=== PATIENT | male | born 1965 | race Caucasian/White ===

== ENCOUNTER 2018-10-31 14:15 | Inpatient (IN) | payer OTHER ==
[2018-10-31 15:14] LABS: ADD MAN DIFF? NO
[2018-10-31 15:19] LABS: BASOPHIL # 0.1 10^3/ul (0.0-0.1); BASOPHILS % 0.6 % (0.0-2.0); EOSINOPHILS # 0.5 10^3/ul (0.0-0.5); LYMPHOCYTES # 1.5 10^3/ul (0.8-2.9); LYMPHOCYTES % 15.3 % (15.0-51.0); MEAN CORPUSCULAR HEMOGLOBIN 28.9 pg (29.0-33.0); MEAN CORPUSCULAR HGB CONC 32.6 g/dl (32.0-37.0); MEAN CORPUSCULAR VOLUME 88.6 fl (82.0-101.0); MEAN PLATELET VOLUME 11.6 fl (7.4-10.4); MONOCYTE # 0.8 10^3/ul (0.3-0.9); MONOCYTES % 8.2 % (0.0-11.0); NEUTROPHILS % 70.5 % (39.0-77.0); PLATELET COUNT 163 10^3/UL (140-415); RED BLOOD COUNT 5.19 10^6/ul (4.70-6.10); RED CELL DISTRIBUTION WIDTH 14.6 % (11.5-14.5)
[2018-10-31 15:19] LABS: WHITE BLOOD COUNT 9.9 10^3/ul (4.8-10.8)
[2018-10-31 15:38] LABS: ALANINE AMINOTRANSFERASE 36 IU/L (13-69); ALBUMIN 3.9 g/dl (3.3-4.9); ALBUMIN/GLOBULIN RATIO 1.39; ALKALINE PHOSPHATASE 76 IU/L (42-121); ANION GAP 8 (5-13); ASPARTATE AMINO TRANSFERASE 37 IU/L (15-46); BILIRUBIN,INDIRECT 1.4 mg/dl (0-1.1); BILIRUBIN,TOTAL 1.4 mg/dl (0.2-1.3); BLOOD UREA NITROGEN 16 mg/dl (7-20); CALCIUM 8.8 mg/dl (8.4-10.2); CARBON DIOXIDE 26 mmol/L (21-31); CHLORIDE 103 mmol/L (97-110); Estimated GFR > 60 mL/min (>60); GLUCOSE 125 mg/dl (70-220); MAGNESIUM 1.8 mg/dl (1.7-2.5); POTASSIUM 4.5 mmol/L (3.5-5.1); SODIUM 137 mmol/L (135-144); TOTAL PROTEIN 6.7 g/dl (6.1-8.1)
[2018-10-31 15:42] LABS: INR 0.94; PARTIAL THROMBOPLASTIN TIME 28.7 Sec (23.0-35.0); PROTIME 12.7 Sec (11.9-14.9)
[2018-10-31 15:52] LABS: B-TYPE NATRIURETIC PEPTIDE 4090 PG/ML (0-125); TROPONIN-I 0.028 ng/ml (0.000-0.120)
[2018-10-31] MEDS ORDERED: ONDANSETRON 4 MG INJ IV (20:00)
[2018-10-31] MEDS ORDERED: NACL 0.9% 3 ML SYG IV (20:00)
[2018-10-31] MEDS ORDERED: ACETAMINOPHEN 325 MG TAB PO (20:00)
[2018-10-31] MEDS: FUROSEMIDE 40 MG INJ IV (20:15)
[2018-10-31] MEDS: BENAZEPRIL 20 MG TAB PO (21:39)
[2018-10-31] MEDS: SENNA TAB PO (21:39)
[2018-10-31] MEDS: IOHEXOL 300MG/ML 150 ML BTL (23:22)
[2018-10-31] MEDS: SOD CHLORIDE 0.9% 100 ML (23:22)
[2018-11-01 05:20] LABS: ADD MAN DIFF? NO
[2018-11-01] MEDS: FUROSEMIDE 40 MG INJ IV ×2 (05:22→17:35)
[2018-11-01] MEDS: PANTOPRAZOLE (EC) 40 MG TAB PO (05:22)
[2018-11-01 05:27] LABS: BASOPHIL # 0.1 10^3/ul (0.0-0.1); BASOPHILS % 0.7 % (0.0-2.0); EOSINOPHILS # 0.6 10^3/ul (0.0-0.5); EOSINOPHILS % 6.2 % (0.0-7.0); HEMATOCRIT 45.3 % (42.0-52.0); HEMOGLOBIN 14.9 g/dl (14.0-18.0); LYMPHOCYTES # 1.7 10^3/ul (0.8-2.9); MEAN CORPUSCULAR HEMOGLOBIN 29.1 pg (29.0-33.0); MEAN CORPUSCULAR HGB CONC 32.9 g/dl (32.0-37.0); MEAN CORPUSCULAR VOLUME 88.5 fl (82.0-101.0); MEAN PLATELET VOLUME 11.5 fl (7.4-10.4); NEUTROPHIL # 6.5 10^3/ul (1.6-7.5); NEUTROPHILS % 65.7 % (39.0-77.0); PLATELET COUNT 177 10^3/UL (140-415); RED BLOOD COUNT 5.12 10^6/ul (4.70-6.10); RED CELL DISTRIBUTION WIDTH 14.6 % (11.5-14.5)
[2018-11-01 05:27] LABS: WHITE BLOOD COUNT 9.9 10^3/ul (4.8-10.8)
[2018-11-01 05:41] LABS: HEMOGLOBIN A1C 5.3 % (0-5.9)
[2018-11-01 05:48] LABS: ALANINE AMINOTRANSFERASE 35 IU/L (13-69); ALBUMIN 3.8 g/dl (3.3-4.9); ALBUMIN/GLOBULIN RATIO 1.26; ALKALINE PHOSPHATASE 70 IU/L (42-121); ANION GAP 11 (5-13); ASPARTATE AMINO TRANSFERASE 29 IU/L (15-46); BILIRUBIN,INDIRECT 1.6 mg/dl (0-1.1); BILIRUBIN,TOTAL 1.6 mg/dl (0.2-1.3); BLOOD UREA NITROGEN 18 mg/dl (7-20); CALCIUM 8.9 mg/dl (8.4-10.2); CARBON DIOXIDE 31 mmol/L (21-31); CHLORIDE 99 mmol/L (97-110); CHOL/HDL RATIO 6.6 RATIO; CHOLESTEROL 180 mg/dl (100-200); CREATININE 1.15 mg/dl (0.61-1.24); Estimated GFR > 60 mL/min (>60); GLUCOSE 105 mg/dl (70-220); HDL CHOLESTEROL 27 mg/dl (28-71); LDL CHOLESTEROL,CALCULATED 134 mg/dl; MAGNESIUM 1.9 mg/dl (1.7-2.5); PHOSPHORUS 5.5 mg/dl (2.5-4.9); POTASSIUM 4.1 mmol/L (3.5-5.1); SODIUM 141 mmol/L (135-144); TOTAL PROTEIN 6.8 g/dl (6.1-8.1); TRIGLYCERIDES 97 mg/dl (0-149)
[2018-11-01 05:57] LABS: TROPONIN-I 0.046 ng/ml (0.000-0.120)
[2018-11-01] MEDS: SENNA TAB PO ×2 (08:19→20:56)
[2018-11-01] MEDS: BENAZEPRIL 20 MG TAB PO (08:19)
[2018-11-02] MEDS: FUROSEMIDE 40 MG INJ IV (05:33)
[2018-11-02] MEDS: PANTOPRAZOLE (EC) 40 MG TAB PO (05:33)
[2018-11-02 06:33] LABS: ANION GAP 8 (5-13); BLOOD UREA NITROGEN 29 mg/dl (7-20); CALCIUM 9.1 mg/dl (8.4-10.2); CARBON DIOXIDE 28 mmol/L (21-31); CHLORIDE 102 mmol/L (97-110); Estimated GFR 53 mL/min (>60); GLUCOSE 125 mg/dl (70-220); SODIUM 138 mmol/L (135-144)
[2018-11-02] MEDS: BENAZEPRIL 20 MG TAB PO (08:05)
[2018-11-02] MEDS: SENNA TAB PO ×2 (08:06→20:35)
[2018-11-02] MEDS: DIGOXIN 500 MCG INJ IV (15:12)
[2018-11-02] MEDS ORDERED: LISINOPRIL 5 MG TAB PO (17:00)
[2018-11-02] MEDS: ASPIRIN (EC) 81 MG TAB PO (17:04)
[2018-11-02] MEDS: ATORVASTATIN 10 MG TAB PO (20:35)
[2018-11-03] MEDS: PANTOPRAZOLE (EC) 40 MG TAB PO (05:40)
[2018-11-03 05:53] LABS: ALANINE AMINOTRANSFERASE 26 IU/L (13-69); ALBUMIN 3.9 g/dl (3.3-4.9); ALBUMIN/GLOBULIN RATIO 1.14; ALKALINE PHOSPHATASE 100 IU/L (42-121); ANION GAP 11 (5-13); ASPARTATE AMINO TRANSFERASE 25 IU/L (15-46); BILIRUBIN,INDIRECT 0.6 mg/dl (0-1.1); BILIRUBIN,TOTAL 0.6 mg/dl (0.2-1.3); BLOOD UREA NITROGEN 37 mg/dl (7-20); CALCIUM 9.1 mg/dl (8.4-10.2); CARBON DIOXIDE 29 mmol/L (21-31); CHLORIDE 102 mmol/L (97-110); Estimated GFR 53 mL/min (>60); GLUCOSE 140 mg/dl (70-220); MAGNESIUM 2.2 mg/dl (1.7-2.5); POTASSIUM 4.1 mmol/L (3.5-5.1); SODIUM 142 mmol/L (135-144); TOTAL PROTEIN 7.3 g/dl (6.1-8.1)
[2018-11-03 05:59] LABS: B-TYPE NATRIURETIC PEPTIDE 715 PG/ML (0-125)
[2018-11-03] MEDS: ASPIRIN (EC) 81 MG TAB PO (09:33)
[2018-11-03] MEDS: SENNA TAB PO (09:33)
[2018-11-03] MEDS: BENAZEPRIL 20 MG TAB PO (09:33)
[2018-11-03] MEDS: METOPROLOL 25 MG TAB PO (12:34)
[2018-11-03] MEDS: DIGOXIN 0.125 MG TAB PO (12:35)
== END 2018-11-03 19:10 | disposition home or self-care (01) | DRG 291 ==
LOC: E/R 14:15 → 6WM 19:53
DX: I11.0 Hypertensive heart disease with heart failure (principal); J96.90 Respiratory failure, unspecified, unspecified whether with hypoxia or hypercapnia; N17.9 Acute kidney failure, unspecified; I50.23 Acute on chronic systolic (congestive) heart failure; M10.9 Gout, unspecified; K74.60 Unspecified cirrhosis of liver; R14.0 Abdominal distension (gaseous); E78.5 Hyperlipidemia, unspecified; R00.0 Tachycardia, unspecified; I42.0 Dilated cardiomyopathy
CPT/HCPCS: 36415; 71045; 74177; 76700; 80048; 80053; 80061; 83036; 83735; 83880; 84100; 84443; 84484; 85025; 85610; 85730; 93005; 93306; 99285-25

== ENCOUNTER 2018-12-15 15:22 | Inpatient (IN) | payer OTHER ==
[2018-12-15] MEDS: CEFEPIME 2GM/50 ML (PMX) 50 ML IVPB (16:09)
[2018-12-15] MEDS: SODIUM CHLORIDE 0.9% 1L BAG IV* (16:09)
[2018-12-15] MEDS: ACETAMINOPHEN 325 MG TAB PO (16:11)
[2018-12-15 16:13] LABS: ABNORMAL IP MESSAGE 1; HEMATOCRIT 45.4 % (42.0-52.0); HEMOGLOBIN 14.7 g/dl (14.0-18.0); MEAN CORPUSCULAR HEMOGLOBIN 27.9 pg (29.0-33.0); MEAN CORPUSCULAR HGB CONC 32.4 g/dl (32.0-37.0); MEAN CORPUSCULAR VOLUME 86.3 fl (82.0-101.0); MEAN PLATELET VOLUME 10.8 fl (7.4-10.4); PLATELET COUNT 177 10^3/UL (140-415); POSITIVE DIFF @See below; RED BLOOD COUNT 5.26 10^6/ul (4.70-6.10); RED CELL DISTRIBUTION WIDTH 13.9 % (11.5-14.5)
[2018-12-15 16:13] LABS: WHITE BLOOD COUNT 10.4 10^3/ul (4.8-10.8)
[2018-12-15 16:16] LABS: ADD MAN DIFF? YES
[2018-12-15 16:30] LABS: ALANINE AMINOTRANSFERASE 17 IU/L (13-69); ALBUMIN 4.4 g/dl (3.3-4.9); ALBUMIN/GLOBULIN RATIO 1.22; ALKALINE PHOSPHATASE 65 IU/L (42-121); ANION GAP 11 (5-13); ASPARTATE AMINO TRANSFERASE 24 IU/L (15-46); BILIRUBIN,INDIRECT 1.2 mg/dl (0-1.1); BILIRUBIN,TOTAL 1.2 mg/dl (0.2-1.3); BLOOD UREA NITROGEN 32 mg/dl (7-20); CALCIUM 9.4 mg/dl (8.4-10.2); CARBON DIOXIDE 27 mmol/L (21-31); CHLORIDE 96 mmol/L (97-110); CREATININE 1.35 mg/dl (0.61-1.24); Estimated GFR 55 mL/min (>60); GLUCOSE 93 mg/dl (70-220); POTASSIUM 4.9 mmol/L (3.5-5.1); SODIUM 134 mmol/L (135-144)
[2018-12-15] MEDS: VANCOMYCIN 1 GM (PMX) 250 ML IVPB (16:33)
[2018-12-15 16:35] LABS: EOSINOPHILS % (M) 1 % (0-7); LYMPHOCYTES #M 1.7 10^3/ul (0.8-2.9); LYMPHOCYTES % (M) 17 % (15-51); MONOCYTE #M 1.6 10^3/ul (0.3-0.9); MONOCYTES % (M) 16 % (0-11); PLATELET ESTIMATE NORMAL; REACTIVE LYMPHOCYTES #M 1.5 10^3/ul (0.0-0.0); REACTIVE LYMPHOCYTES% (M) 15 % (0-0); SEGMENTED NEUTROPHILS (M) % 51 % (39-77); SMUDGE%M 1 % (0-0)
[2018-12-15] MEDS: METHYLPREDNISOLONE 125 MG INJ IV (16:45)
[2018-12-15] MEDS: ALBUTEROL 0.083% (NEB) 2.5 MG/3 ML AMP NEB (17:04)
[2018-12-15 19:30] LABS: ERYTHROCYTE SEDIMENTATION RATE 27 mm/Hr (0-20)
[2018-12-15] MEDS ORDERED: ACETAMINOPHEN 325 MG TAB PO ×2 (22:00→22:30)
[2018-12-15] MEDS ORDERED: ONDANSETRON 4 MG INJ IV ×2 (22:00→22:30)
[2018-12-15] MEDS ORDERED: HYDROCODONE/APAP (5/325) TAB PO (22:30)
[2018-12-15] MEDS ORDERED: NACL 0.9% 3 ML SYG IV (22:30)
[2018-12-15 22:56] LABS: INR 0.97
[2018-12-15 22:57] LABS: PARTIAL THROMBOPLASTIN TIME 34.9 Sec (23.0-35.0)
[2018-12-16 00:25] LABS: SYN FLD CLARITY Turbid; SYN FLD COLOR ORANGE; SYN FLD CRYSTALS URIC ACID CRYSTALS (None seen); SYN FLD VOLUME 2.5 mL (0-3.5)
[2018-12-16 00:25] LABS: SYN FLD SOURCE RIGHT KNEE
[2018-12-16 00:48] LABS: SYN FLD MN % 3.9 &; SYN FLD PMN % 96.1 % (0.0-25.0)
[2018-12-16] MEDS ORDERED: VANCOMYCIN IV PER PHARMACY XX (01:00)
[2018-12-16 01:01] LABS: SYN FLD WBC 80786 /cmm (0-150)
[2018-12-16] MEDS: SOD CHLORIDE 0.9% 1,000 ML IV (02:06)
[2018-12-16] MEDS: LIDOCAINE 1% (MPF) 5 ML VIAL INJ (02:54)
[2018-12-16] MEDS: POVIDONE IODINE 10% 28.4 GM OINT TOP (02:54)
[2018-12-16 03:05] LABS: ADD UMIC NO; UR ASCORBIC ACID 40 mg/dL (NEGATIVE); UR BILIRUBIN (Dip) NEGATIVE (NEGATIVE); UR BLOOD (Dip) NEGATIVE (NEGATIVE); UR CLARITY CLEAR (CLEAR); UR COLOR YELLOW (YELLOW); UR GLUCOSE (Dip) NEGATIVE (NEGATIVE); UR KETONES (Dip) NEGATIVE (NEGATIVE); UR LEUKOCYTE ESTERASE (Dip) NEGATIVE Leu/ul (NEGATIVE); UR NITRITE (Dip) NEGATIVE (NEGATIVE); UR SPECIFIC GRAVITY (Dip) 1.017 (1.003-1.030); UR TOTAL PROTEIN (Dip) NEGATIVE (NEGATIVE); UR UROBILINOGEN (Dip) NEGATIVE (NEGATIVE)
[2018-12-16] MEDS: CEFTRIAXONE 2 GM/50 ML (PMX) 50 ML IVPB (03:11)
[2018-12-16] MEDS: VANCOMYCIN HCL 1.5 GM in SOD CHLORIDE 0.9% 250 ML IVPB ×2 (03:56→15:20)
[2018-12-16 05:33] LABS: ADD MAN DIFF? NO
[2018-12-16 05:37] LABS: WHITE BLOOD COUNT 9.3 10^3/ul (4.8-10.8)
[2018-12-16 05:37] LABS: BASOPHILS % 0.1 % (0.0-2.0); HEMATOCRIT 40.9 % (42.0-52.0); HEMOGLOBIN 13.4 g/dl (14.0-18.0); LYMPHOCYTES # 1.1 10^3/ul (0.8-2.9); LYMPHOCYTES % 11.7 % (15.0-51.0); MEAN CORPUSCULAR HEMOGLOBIN 28.5 pg (29.0-33.0); MEAN CORPUSCULAR HGB CONC 32.8 g/dl (32.0-37.0); MEAN PLATELET VOLUME 11.4 fl (7.4-10.4); MONOCYTE # 0.3 10^3/ul (0.3-0.9); MONOCYTES % 3.4 % (0.0-11.0); NEUTROPHIL # 7.8 10^3/ul (1.6-7.5); NEUTROPHILS % 84.4 % (39.0-77.0); PLATELET COUNT 169 10^3/UL (140-415); RED CELL DISTRIBUTION WIDTH 13.7 % (11.5-14.5)
[2018-12-16] MEDS: COLCHICINE 0.6 MG TAB PO (05:51)
[2018-12-16] MEDS: PANTOPRAZOLE (EC) 40 MG TAB PO (05:51)
[2018-12-16 05:53] LABS: HEMOGLOBIN A1C 5.5 % (0-5.9)
[2018-12-16 06:01] LABS: ALANINE AMINOTRANSFERASE 13 IU/L (13-69); ALBUMIN 3.9 g/dl (3.3-4.9); ALBUMIN/GLOBULIN RATIO 1.18; ALKALINE PHOSPHATASE 52 IU/L (42-121); ANION GAP 9 (5-13); ASPARTATE AMINO TRANSFERASE 20 IU/L (15-46); BILIRUBIN,INDIRECT 0.4 mg/dl (0-1.1); BILIRUBIN,TOTAL 0.4 mg/dl (0.2-1.3); BLOOD UREA NITROGEN 35 mg/dl (7-20); CALCIUM 9.3 mg/dl (8.4-10.2); CARBON DIOXIDE 28 mmol/L (21-31); CHLORIDE 101 mmol/L (97-110); CREATININE 1.18 mg/dl (0.61-1.24); Estimated GFR > 60 mL/min (>60); GLUCOSE 159 mg/dl (70-220); MAGNESIUM 2.2 mg/dl (1.7-2.5); POTASSIUM 4.7 mmol/L (3.5-5.1); SODIUM 138 mmol/L (135-144); TOTAL PROTEIN 7.2 g/dl (6.1-8.1)
[2018-12-16 06:16] LABS: FREE THYROXINE INDEX (Calc) 1.88 ug/ml (0.65-3.89); T3 UPTAKE 36.8 % (23.5-40.5); T4 (THYROXINE) 5.1 ug/dl (5.5-11.0)
[2018-12-16 06:29] LABS: THYROID STIMULATING HORMONE 0.241 MIU/L (0.465-4.680)
[2018-12-16] MEDS: IVABRADINE HCL 5 MG TABLET PO ×2 (09:32→20:51)
[2018-12-16] MEDS: ALLOPURINOL 100 MG TAB PO (09:33)
[2018-12-16 10:50] LABS: CREATINE KINASE 236 IU/L (23-200)
[2018-12-16 11:03] LABS: CK-MB 2.27 ng/ml (0.0-2.4); TROPONIN-I < 0.012 ng/ml (0.000-0.120)
[2018-12-16] MEDS: FUROSEMIDE 20 MG TAB PO (11:51)
[2018-12-16] MEDS: DIGOXIN 0.125 MG TAB PO (14:20)
[2018-12-16 16:42] LABS: CREATINE KINASE 224 IU/L (23-200)
[2018-12-16 16:55] LABS: CK INDEX 1.3; TROPONIN-I < 0.012 ng/ml (0.000-0.120)
[2018-12-16 16:59] LABS: CK-MB 2.94 ng/ml (0.0-2.4)
[2018-12-16] MEDS: ATORVASTATIN 10 MG TAB PO (20:51)
[2018-12-16] MEDS: METOPROLOL (XL) 25 MG TAB PO (20:51)
[2018-12-16 22:33] LABS: CREATINE KINASE 200 IU/L (23-200)
[2018-12-16 22:46] LABS: CK INDEX 1.3; TROPONIN-I 0.023 ng/ml (0.000-0.120)
[2018-12-16 22:56] LABS: CK-MB 2.58 ng/ml (0.0-2.4)
[2018-12-17] MEDS: CEFTRIAXONE 2 GM/50 ML (PMX) 50 ML IVPB (01:34)
[2018-12-17] MEDS: VANCOMYCIN HCL 1.5 GM in SOD CHLORIDE 0.9% 250 ML IVPB (03:10)
[2018-12-17 05:51] LABS: ADD MAN DIFF? NO
[2018-12-17 06:05] LABS: WHITE BLOOD COUNT 10.8 10^3/ul (4.8-10.8)
[2018-12-17 06:05] LABS: BASOPHILS % 0.3 % (0.0-2.0); EOSINOPHILS # 0.1 10^3/ul (0.0-0.5); EOSINOPHILS % 0.6 % (0.0-7.0); HEMOGLOBIN 13.4 g/dl (14.0-18.0); LYMPHOCYTES # 2.1 10^3/ul (0.8-2.9); LYMPHOCYTES % 19.2 % (15.0-51.0); MEAN CORPUSCULAR HEMOGLOBIN 27.9 pg (29.0-33.0); MEAN CORPUSCULAR HGB CONC 31.2 g/dl (32.0-37.0); MEAN CORPUSCULAR VOLUME 89.4 fl (82.0-101.0); MEAN PLATELET VOLUME 11.3 fl (7.4-10.4); MONOCYTE # 1.1 10^3/ul (0.3-0.9); NEUTROPHIL # 7.5 10^3/ul (1.6-7.5); NEUTROPHILS % 69.3 % (39.0-77.0); PLATELET COUNT 175 10^3/UL (140-415); RED BLOOD COUNT 4.81 10^6/ul (4.70-6.10); RED CELL DISTRIBUTION WIDTH 13.8 % (11.5-14.5)
[2018-12-17] MEDS: PANTOPRAZOLE (EC) 40 MG TAB PO (06:09)
[2018-12-17 06:57] LABS: ANION GAP 9 (5-13); BLOOD UREA NITROGEN 32 mg/dl (7-20); CARBON DIOXIDE 30 mmol/L (21-31); CHLORIDE 104 mmol/L (97-110); Estimated GFR > 60 mL/min (>60); GLUCOSE 113 mg/dl (70-220); MAGNESIUM 2.5 mg/dl (1.7-2.5); POTASSIUM 4.7 mmol/L (3.5-5.1); SODIUM 143 mmol/L (135-144)
[2018-12-17 06:57] LABS: DIGOXIN < 0.4 ng/ml (1.0-2.0)
[2018-12-17 06:59] LABS: C-REACTIVE PROTEIN 5.7 mg/dl (0.0-0.9)
[2018-12-17] MEDS: COLCHICINE 0.6 MG TAB PO (08:43)
[2018-12-17] MEDS: FUROSEMIDE 20 MG TAB PO (08:44)
[2018-12-17] MEDS: IVABRADINE HCL 5 MG TABLET PO ×2 (08:44→20:37)
[2018-12-17] MEDS: ALLOPURINOL 100 MG TAB PO (08:44)
[2018-12-17] MEDS: LISINOPRIL 5 MG TAB PO (08:44)
[2018-12-17] MEDS: DIGOXIN 0.125 MG TAB PO (13:24)
[2018-12-17 14:25] LABS: VANCOMYCIN,TROUGH 17.5 ug/ml (10.0-20.0)
[2018-12-17] MEDS: VANCOMYCIN HCL 1.25 GM in SOD CHLORIDE 0.9% 250 ML IVPB (17:22)
[2018-12-17] MEDS: METOPROLOL (XL) 25 MG TAB PO (20:37)
[2018-12-17] MEDS: ATORVASTATIN 10 MG TAB PO (20:37)
[2018-12-18] MEDS: CEFTRIAXONE 2 GM/50 ML (PMX) 50 ML IVPB (01:11)
[2018-12-18] MEDS: VANCOMYCIN HCL 1.25 GM in SOD CHLORIDE 0.9% 250 ML IVPB (05:23)
[2018-12-18] MEDS: PANTOPRAZOLE (EC) 40 MG TAB PO (05:23)
[2018-12-18 06:06] LABS: ADD MAN DIFF? NO
[2018-12-18 06:11] LABS: BASOPHILS % 0.6 % (0.0-2.0); EOSINOPHILS # 0.4 10^3/ul (0.0-0.5); EOSINOPHILS % 5.7 % (0.0-7.0); HEMATOCRIT 43.3 % (42.0-52.0); LYMPHOCYTES # 2.7 10^3/ul (0.8-2.9); LYMPHOCYTES % 37.8 % (15.0-51.0); MEAN CORPUSCULAR HEMOGLOBIN 28.2 pg (29.0-33.0); MEAN CORPUSCULAR HGB CONC 32.3 g/dl (32.0-37.0); MEAN CORPUSCULAR VOLUME 87.1 fl (82.0-101.0); MEAN PLATELET VOLUME 10.8 fl (7.4-10.4); MONOCYTE # 0.8 10^3/ul (0.3-0.9); MONOCYTES % 11.1 % (0.0-11.0); NEUTROPHIL # 3.1 10^3/ul (1.6-7.5); NEUTROPHILS % 44.4 % (39.0-77.0); PLATELET COUNT 192 10^3/UL (140-415); RED BLOOD COUNT 4.97 10^6/ul (4.70-6.10); RED CELL DISTRIBUTION WIDTH 13.9 % (11.5-14.5)
[2018-12-18 06:59] LABS: ANION GAP 10 (5-13); BLOOD UREA NITROGEN 30 mg/dl (7-20); CALCIUM 9.3 mg/dl (8.4-10.2); CARBON DIOXIDE 29 mmol/L (21-31); CHLORIDE 104 mmol/L (97-110); CREATININE 1.12 mg/dl (0.61-1.24); Estimated GFR > 60 mL/min (>60); GLUCOSE 105 mg/dl (70-220); POTASSIUM 4.9 mmol/L (3.5-5.1); SODIUM 143 mmol/L (135-144)
[2018-12-18] MEDS: COLCHICINE 0.6 MG TAB PO (08:51)
[2018-12-18] MEDS: IVABRADINE HCL 5 MG TABLET PO (08:51)
[2018-12-18] MEDS: LISINOPRIL 5 MG TAB PO (08:52)
[2018-12-18] MEDS: ALLOPURINOL 100 MG TAB PO (08:52)
[2018-12-18] MEDS: FUROSEMIDE 20 MG TAB PO (08:52)
[2018-12-18] MEDS: DIGOXIN 0.125 MG TAB PO (14:16)
[2018-12-19] MEDS ORDERED: LISINOPRIL 10 MG TAB PO (09:00)
== END 2018-12-18 15:30 | disposition home or self-care (01) | DRG 603 ==
LOC: PP2 21:43 → E/R 15:22
PROVIDERS: Internal Medicine
PROC: 0S9F3ZZ Drainage of Right Ankle Joint, Percutaneous Approach (ICD-10-PCS; principal; 2018-12-16 17:00)
DX: L03.115 Cellulitis of right lower limb (principal); I50.22 Chronic systolic (congestive) heart failure; N17.9 Acute kidney failure, unspecified; I42.9 Cardiomyopathy, unspecified; R65.10 Systemic inflammatory response syndrome (SIRS) of non-infectious origin without acute organ dysfunction; M10.9 Gout, unspecified; E78.5 Hyperlipidemia, unspecified; I11.0 Hypertensive heart disease with heart failure; E66.9 Obesity, unspecified; Z68.36 Body mass index [BMI] 36.0-36.9, adult
CPT/HCPCS: 36415; 71045; 73610-RT; 80048; 80053; 80162; 80202; 81003; 82550; 82553; 83036; 83605; 83735; 84436; 84443; 84479; 84484; 84560; 85025; 85610; 85651; 85730; 86140; 87040; 87070; 87075; 87086; 87400; 89051; 89060; 93005; 94664; 96374; 96375; 99285-25